=== PATIENT | male | born 1945 | race Caucasian/White ===

== ENCOUNTER 2020-07-15 18:12 | Inpatient (IN) | payer MEDICARE ==
[2020-07-16] MEDS ORDERED: Albuterol 200 PUFF (6.7GM INHALER) INH PRN (05:27)
[2020-07-16] MEDS ORDERED: Ondansetron ODT 4 MG TAB PO PRN (05:31)
[2020-07-16] MEDS ORDERED: LOPERAMIDE HCL 1 MG/7.5 ML PO PRN (05:32)
[2020-07-16] MEDS: Loratadine 10 MG TAB PO SCH (09:06)
[2020-07-16] MEDS: Dexamethasone 4 MG TAB PO SCH (09:06)
[2020-07-16] MEDS: Torsemide 20 MG TAB PO SCH (09:06)
[2020-07-16] MEDS: Aspirin 81 mg Enteric Coated Tablet PO SCH (09:07)
[2020-07-16] MEDS: Zinc Sulfate 220 MG CAP PO SCH (09:07)
[2020-07-16] MEDS: Amlodipine 5 MG TAB PO SCH (09:08)
[2020-07-16] MEDS: glipiZIDE 5 MG TAB PO SCH (09:08)
[2020-07-16] MEDS: Spironolactone 25 MG TAB PO SCH (09:09)
[2020-07-16] MEDS: Metoclopramide HCl 10 MG TAB PO SCH (09:09)
[2020-07-16] MEDS: Apixaban 5 MG TAB PO SCH ×2 (09:10→21:01)
[2020-07-16] MEDS: Benzonatate 100 MG CAP PO SCH ×3 (09:10→21:02)
[2020-07-16] MEDS: metFORMIN 500 MG TAB PO SCH ×2 (09:10→17:13)
[2020-07-16] MEDS: Albuterol 200 PUFF (6.7GM INHALER) INH SCH ×4 (09:11→21:04)
[2020-07-16] MEDS: Mometasone/Formoterol 60 PUFF AER INH SCH ×2 (09:53→20:59)
[2020-07-16] MEDS ORDERED: Dextrose 5% in Water 1,000 ML IV PRN (13:15)
[2020-07-16] MEDS ORDERED: HumaLOG 300 UNITS/3 ML VIAL SC PRN (13:15)
[2020-07-16] MEDS ORDERED: Dextrose 50% Abboject 50 ML SYRINGE IVP PRN (13:15)
[2020-07-16] MEDS: HumaLOG 300 UNITS/3 ML VIAL SC PRN ×2 (13:33→17:14)
[2020-07-16] MEDS: traZODone HCl 50 MG TAB PO SCH (21:02)
[2020-07-16] MEDS: Atorvastatin Calcium 20 MG TAB PO SCH (21:02)
[2020-07-17] MEDS: Albuterol 200 PUFF (6.7GM INHALER) INH SCH ×6 (02:00→20:40)
[2020-07-17 05:34] LABS: Band 10 % (5-11); Eosinophils 4 % (0-10); Hemoglobin 13.6 g/dL (14.0-18.0); Lymphocytes 6 % (21-51); MDiff Complete? YES; Mean Corpuscular HGB CONC 31.9 g/dL (32.0-36.0); Mean Corpuscular Hemoglobin 27.9 pg (27.0-31.0); Mean Corpuscular Volume 87.5 fL (78.0-98.0); Mean Platelet Volume 9.5 fL (7.4-10.4); Monocytes 3 % (0-10); Neutrophil 77 % (42-75); Ovalocytes SLIGHT = 2-5 cells (100X) (0-1/hpf); Platelet Count 256 thou/uL (130-400); Platelet Morphology Comment Appears Adequate; RBC Distribution Width 17.4 % (11.5-14.5); Red Blood Cell (RBC) Count 4.86 mill/uL (4.70-6.10); White Blood Cell (WBC) Count 26.4 thou/uL (4.8-10.8)
[2020-07-17 05:38] LABS: Anion Gap 14 mmol/L (10-20); BUN (Urea Nitrogen) 23 mg/dL (8.4-25.7); Calc. Creatinine Clearance 87 mL/min (70-130); Calcium 8.7 mg/dL (7.8-10.44); Carbon Dioxide 25 mmol/L (23-31); Chloride 93 mmol/L (98-107); Glucose 207 mg/dL (83-110); Sodium 128 mmol/L (136-145)
[2020-07-17 05:39] LABS: ALT (SGPT) 11 U/L (8-55); AST (SGOT) 10 U/L (5-34); Albumin 3.3 g/dL (3.4-4.8); Alkaline Phosphatase 85 U/L (40-110); Globulin 2.3 g/dL (2.4-3.5); Protein, Total 5.6 g/dL (5.8-8.1)
[2020-07-17] MEDS: HumaLOG 300 UNITS/3 ML VIAL SC PRN ×3 (06:47→17:51)
[2020-07-17] MEDS: glipiZIDE 5 MG TAB PO SCH (08:40)
[2020-07-17] MEDS: metFORMIN 500 MG TAB PO SCH ×2 (08:40→17:51)
[2020-07-17] MEDS: Torsemide 20 MG TAB PO SCH (08:41)
[2020-07-17] MEDS: Zinc Sulfate 220 MG CAP PO SCH (08:41)
[2020-07-17] MEDS: Metoclopramide HCl 10 MG TAB PO SCH (08:42)
[2020-07-17] MEDS: Apixaban 5 MG TAB PO SCH ×2 (08:42→20:41)
[2020-07-17] MEDS: Dexamethasone 4 MG TAB PO SCH (08:42)
[2020-07-17] MEDS: Spironolactone 25 MG TAB PO SCH (08:42)
[2020-07-17] MEDS: Benzonatate 100 MG CAP PO SCH ×3 (08:42→20:41)
[2020-07-17] MEDS: Aspirin 81 mg Enteric Coated Tablet PO SCH (08:42)
[2020-07-17] MEDS: Amlodipine 5 MG TAB PO SCH (08:43)
[2020-07-17] MEDS: Mometasone/Formoterol 60 PUFF AER INH SCH ×2 (08:44→20:41)
[2020-07-17] MEDS: Loratadine 10 MG TAB PO SCH (08:44)
[2020-07-17] MEDS ORDERED: Dextrose 50% Abboject 50 ML SYRINGE SLOW IVP PRN (18:31)
[2020-07-17] MEDS: Atorvastatin Calcium 20 MG TAB PO SCH (20:41)
[2020-07-17] MEDS: traZODone HCl 50 MG TAB PO SCH (20:41)
[2020-07-17] MEDS: Insulin Regular 300 UNITS/3 ML VIAL SC PRN (20:48)
[2020-07-18] MEDS: Albuterol 200 PUFF (6.7GM INHALER) INH SCH ×6 (02:00→20:54)
[2020-07-18] MEDS ORDERED: Albuterol Sulfate 2.5 mg/0.5 ml Neb ONE (05:10)
[2020-07-18] MEDS: Insulin Regular 300 UNITS/3 ML VIAL SC PRN ×4 (05:19→21:03)
[2020-07-18 05:30] LABS: #Basophils 0.1 thou/uL (0.0-0.2); #Eosinphils 0.1 thou/uL (0.0-0.7); #Lymphocytes 1.2 thou/uL (1.20-3.40); #Monocytes 1.8 thou/uL (0.11-0.59); #Neutrophils 24.2 thou/uL (1.40-6.50); %Basophils 0.4 % (0.0-1.0); %Eosinophils 0.2 % (0.0-10.0); %Lymphocytes 4.3 % (21.0-51.0); %Monocytes 6.6 % (0.0-10.0); %Neutrophils 88.6 % (42.0-75.0); Hemoglobin 13.6 g/dL (14.0-18.0); Mean Corpuscular HGB CONC 31.9 g/dL (32.0-36.0); Mean Corpuscular Hemoglobin 28.1 pg (27.0-31.0); Mean Platelet Volume 8.8 fL (7.4-10.4); Platelet Count 277 thou/uL (130-400); RBC Distribution Width 17.5 % (11.5-14.5); Red Blood Cell (RBC) Count 4.85 mill/uL (4.70-6.10); White Blood Cell (WBC) Count 27.4 thou/uL (4.8-10.8)
[2020-07-18 05:41] LABS: Anion Gap 17 mmol/L (10-20); BUN (Urea Nitrogen) 28 mg/dL (8.4-25.7); Calc. Creatinine Clearance 83 mL/min (70-130); Calcium 8.8 mg/dL (7.8-10.44); Carbon Dioxide 19 mmol/L (23-31); Chloride 95 mmol/L (98-107); Glucose 243 mg/dL (83-110); Potassium 4.5 mmol/L (3.5-5.1); Sodium 126 mmol/L (136-145)
[2020-07-18] MEDS: Apixaban 5 MG TAB PO SCH ×2 (08:07→20:53)
[2020-07-18] MEDS: Mometasone/Formoterol 60 PUFF AER INH SCH ×2 (08:07→20:54)
[2020-07-18] MEDS: Aspirin 81 mg Enteric Coated Tablet PO SCH (08:08)
[2020-07-18] MEDS: Torsemide 20 MG TAB PO SCH (08:08)
[2020-07-18] MEDS: Spironolactone 25 MG TAB PO SCH (08:09)
[2020-07-18] MEDS: glipiZIDE 5 MG TAB PO SCH (08:09)
[2020-07-18] MEDS: Amlodipine 5 MG TAB PO SCH (08:09)
[2020-07-18] MEDS: Metoclopramide HCl 10 MG TAB PO SCH (08:09)
[2020-07-18] MEDS: Loratadine 10 MG TAB PO SCH (08:09)
[2020-07-18] MEDS: Benzonatate 100 MG CAP PO SCH ×3 (08:09→20:53)
[2020-07-18] MEDS: metFORMIN 500 MG TAB PO SCH ×2 (08:09→16:51)
[2020-07-18] MEDS: Zinc Sulfate 220 MG CAP PO SCH (08:09)
[2020-07-18] MEDS: Dexamethasone 4 MG TAB PO SCH (08:10)
[2020-07-18] MEDS: traZODone HCl 50 MG TAB PO SCH (20:53)
[2020-07-18] MEDS: Atorvastatin Calcium 20 MG TAB PO SCH (20:53)
[2020-07-19] MEDS: Albuterol 200 PUFF (6.7GM INHALER) INH SCH ×6 (01:05→21:12)
[2020-07-19] MEDS: Insulin Regular 300 UNITS/3 ML VIAL SC PRN ×4 (05:15→21:18)
[2020-07-19] MEDS: glipiZIDE 5 MG TAB PO SCH (08:17)
[2020-07-19] MEDS: metFORMIN 500 MG TAB PO SCH ×2 (08:17→17:26)
[2020-07-19] MEDS: Spironolactone 25 MG TAB PO SCH (08:18)
[2020-07-19] MEDS: Apixaban 5 MG TAB PO SCH ×2 (08:19→21:10)
[2020-07-19] MEDS: Amlodipine 5 MG TAB PO SCH (08:19)
[2020-07-19] MEDS: Metoclopramide HCl 10 MG TAB PO SCH (08:20)
[2020-07-19] MEDS: Loratadine 10 MG TAB PO SCH (08:20)
[2020-07-19] MEDS: Benzonatate 100 MG CAP PO SCH ×3 (08:20→21:10)
[2020-07-19] MEDS: Dexamethasone 4 MG TAB PO SCH (08:20)
[2020-07-19] MEDS: Aspirin 81 mg Enteric Coated Tablet PO SCH (08:20)
[2020-07-19] MEDS: Mometasone/Formoterol 60 PUFF AER INH SCH ×2 (08:21→21:10)
[2020-07-19] MEDS: Zinc Sulfate 220 MG CAP PO SCH (08:23)
[2020-07-19] MEDS: Torsemide 20 MG TAB PO SCH (08:23)
[2020-07-19] MEDS: Atorvastatin Calcium 20 MG TAB PO SCH (21:10)
[2020-07-19] MEDS: traZODone HCl 50 MG TAB PO SCH (21:10)
[2020-07-20] MEDS: Albuterol 200 PUFF (6.7GM INHALER) INH SCH ×6 (00:33→20:45)
[2020-07-20] MEDS: Insulin Regular 300 UNITS/3 ML VIAL SC PRN ×4 (05:21→20:41)
[2020-07-20] MEDS: metFORMIN 500 MG TAB PO SCH ×2 (08:54→17:23)
[2020-07-20] MEDS: Spironolactone 25 MG TAB PO SCH (08:55)
[2020-07-20] MEDS: Amlodipine 5 MG TAB PO SCH (08:56)
[2020-07-20] MEDS: Benzonatate 100 MG CAP PO SCH ×3 (08:57→20:42)
[2020-07-20] MEDS: Dexamethasone 4 MG TAB PO SCH (08:57)
[2020-07-20] MEDS: Apixaban 5 MG TAB PO SCH ×2 (08:57→20:43)
[2020-07-20] MEDS: Aspirin 81 mg Enteric Coated Tablet PO SCH (08:57)
[2020-07-20] MEDS: Loratadine 10 MG TAB PO SCH (08:58)
[2020-07-20] MEDS: Metoclopramide HCl 10 MG TAB PO SCH (08:58)
[2020-07-20] MEDS: Mometasone/Formoterol 60 PUFF AER INH SCH ×2 (08:59→20:43)
[2020-07-20] MEDS: Torsemide 20 MG TAB PO SCH (09:00)
[2020-07-20] MEDS ORDERED: Lantus 1000 UNITS/10 ML VIAL SC SCH ×2 (09:00→13:15)
[2020-07-20] MEDS: Zinc Sulfate 220 MG CAP PO SCH (09:02)
[2020-07-20] MEDS: traZODone HCl 50 MG TAB PO SCH (20:42)
[2020-07-20] MEDS: Atorvastatin Calcium 20 MG TAB PO SCH (20:42)
[2020-07-21] MEDS: Albuterol 200 PUFF (6.7GM INHALER) INH SCH ×6 (01:14→20:26)
[2020-07-21 05:43] LABS: Hemoglobin 13.4 g/dL (14.0-18.0); Mean Corpuscular HGB CONC 31.2 g/dL (32.0-36.0); Mean Corpuscular Hemoglobin 27.1 pg (27.0-31.0); Mean Corpuscular Volume 86.8 fL (78.0-98.0); Mean Platelet Volume 8.8 fL (7.4-10.4); Platelet Count 335 thou/uL (130-400); RBC Distribution Width 17.4 % (11.5-14.5); Red Blood Cell (RBC) Count 4.95 mill/uL (4.70-6.10); White Blood Cell (WBC) Count 42.2 thou/uL (4.8-10.8)
[2020-07-21 05:44] LABS: Anion Gap 17 mmol/L (10-20); BUN (Urea Nitrogen) 25 mg/dL (8.4-25.7); Calc. Creatinine Clearance 84 mL/min (70-130); Calcium 9.1 mg/dL (7.8-10.44); Carbon Dioxide 24 mmol/L (23-31); Chloride 89 mmol/L (98-107); Glucose 155 mg/dL (83-110); Potassium 4.4 mmol/L (3.5-5.1); Sodium 126 mmol/L (136-145)
[2020-07-21 05:49] LABS: #Basophils 0.3 thou/uL (0.0-0.2); #Lymphocytes 1.6 thou/uL (1.20-3.40); #Monocytes 2.1 thou/uL (0.11-0.59); #Neutrophils 38.3 thou/uL (1.40-6.50); %Basophils 0.6 % (0.0-1.0); %Eosinophils 0.1 % (0.0-10.0); %Lymphocytes 3.8 % (21.0-51.0); %Monocytes 4.9 % (0.0-10.0); %Neutrophils 90.6 % (42.0-75.0); Anisocytosis SLIGHT = 6-15 cells (100X) (0-5/hpf); Band 7 % (5-11); Lymphocytes 8 % (21-51); MDiff Complete? YES; Monocytes 3 % (0-10); Neutrophil 82 % (42-75); Platelet Morphology Comment Appears Adequate; Poikilocytosis SLIGHT = 6-15 cells (100X) (0-5/hpf)
[2020-07-21] MEDS: Insulin Regular 300 UNITS/3 ML VIAL SC PRN ×4 (05:59→20:25)
[2020-07-21 06:09] LABS: White Blood Cell (WBC) Count 43.1 thou/uL (4.8-10.8)
[2020-07-21 06:39] LABS: Lactic Acid 1.5 mmol/L (0.5-2.2)
[2020-07-21 07:01] LABS: Bacteria/HPF None Seen HPF (None Seen); Bilirubin Negative (Negative); Blood, Urine Negative (Negative); Clarity Slightly Cloudy (Clear); Glucose, Urine (Dipstick) Negative (Negative); Ketone, Urine Negative (Negative); Leukocyte Large (Negative); Nitrite Negative (Negative); Protein, Urine (Dipstick) Negative (Neg-Trace); RBC/HPF 0-3 HPF (0-3); Specific Gravity, Urine 1.015 (1.005-1.030); Squamous Epithelial 0-3 HPF (0-3); Urobilinogen 0.2 mg/dL (Less than 2); Yeast-Budding 3+ HPF (None Seen); pH, Urine 5.5 (5.0-9.0)
[2020-07-21] MEDS: Torsemide 20 MG TAB PO SCH (08:28)
[2020-07-21] MEDS: Zinc Sulfate 220 MG CAP PO SCH (08:28)
[2020-07-21] MEDS: Aspirin 81 mg Enteric Coated Tablet PO SCH (08:28)
[2020-07-21] MEDS: Dexamethasone 4 MG TAB PO SCH (08:28)
[2020-07-21] MEDS: metFORMIN 500 MG TAB PO SCH ×2 (08:29→17:39)
[2020-07-21] MEDS: Spironolactone 25 MG TAB PO SCH (08:29)
[2020-07-21] MEDS: Benzonatate 100 MG CAP PO SCH ×3 (08:29→20:26)
[2020-07-21] MEDS: Metoclopramide HCl 10 MG TAB PO SCH (08:29)
[2020-07-21] MEDS: Amlodipine 5 MG TAB PO SCH (08:30)
[2020-07-21] MEDS: Loratadine 10 MG TAB PO SCH (08:30)
[2020-07-21] MEDS: Apixaban 5 MG TAB PO SCH ×2 (08:30→20:26)
[2020-07-21] MEDS: Mometasone/Formoterol 60 PUFF AER INH SCH ×2 (08:33→20:27)
[2020-07-21] MEDS: Lantus 1000 UNITS/10 ML VIAL SC SCH (08:35)
[2020-07-21] MEDS ORDERED: Fluconazole 100 MG TAB PO SCH (10:30)
[2020-07-21] MEDS: traZODone HCl 50 MG TAB PO SCH (20:26)
[2020-07-21] MEDS: Atorvastatin Calcium 20 MG TAB PO SCH (20:26)
[2020-07-22] MEDS: Albuterol 200 PUFF (6.7GM INHALER) INH SCH ×6 (00:23→20:42)
[2020-07-22 05:56] LABS: Anion Gap 17 mmol/L (10-20); BUN (Urea Nitrogen) 32 mg/dL (8.4-25.7); Calc. Creatinine Clearance 80 mL/min (70-130); Calcium 8.9 mg/dL (7.8-10.44); Carbon Dioxide 22 mmol/L (23-31); Chloride 91 mmol/L (98-107); Glucose 142 mg/dL (83-110); Potassium 4.4 mmol/L (3.5-5.1); Sodium 126 mmol/L (136-145)
[2020-07-22 06:14] LABS: #Basophils 0.1 thou/uL (0.0-0.2); #Eosinphils 0.1 thou/uL (0.0-0.7); #Neutrophils 38.1 thou/uL (1.40-6.50); %Basophils 0.3 % (0.0-1.0); %Eosinophils 0.1 % (0.0-10.0); %Lymphocytes 4.7 % (21.0-51.0); %Monocytes 4.8 % (0.0-10.0); %Neutrophils 90.1 % (42.0-75.0); Hemoglobin 13.2 g/dL (14.0-18.0); Mean Corpuscular HGB CONC 31.4 g/dL (32.0-36.0); Mean Corpuscular Hemoglobin 27.5 pg (27.0-31.0); Mean Corpuscular Volume 87.4 fL (78.0-98.0); Mean Platelet Volume 8.4 fL (7.4-10.4); Platelet Count 334 thou/uL (130-400); RBC Distribution Width 17.3 % (11.5-14.5); White Blood Cell (WBC) Count 42.3 thou/uL (4.8-10.8)
[2020-07-22] MEDS: Spironolactone 25 MG TAB PO SCH (09:24)
[2020-07-22] MEDS: metFORMIN 500 MG TAB PO SCH ×2 (09:24→17:00)
[2020-07-22] MEDS: Loratadine 10 MG TAB PO SCH (09:25)
[2020-07-22] MEDS: Amlodipine 5 MG TAB PO SCH (09:25)
[2020-07-22] MEDS: Torsemide 20 MG TAB PO SCH (09:25)
[2020-07-22] MEDS: Benzonatate 100 MG CAP PO SCH ×3 (09:26→20:43)
[2020-07-22] MEDS: Metoclopramide HCl 10 MG TAB PO SCH (09:26)
[2020-07-22] MEDS: Apixaban 5 MG TAB PO SCH ×2 (09:26→20:43)
[2020-07-22] MEDS: Dexamethasone 1 MG TAB PO SCH (09:26)
[2020-07-22] MEDS: Zinc Sulfate 220 MG CAP PO SCH (09:26)
[2020-07-22] MEDS: Aspirin 81 mg Enteric Coated Tablet PO SCH (09:27)
[2020-07-22] MEDS: Mometasone/Formoterol 60 PUFF AER INH SCH ×2 (09:28→20:43)
[2020-07-22] MEDS: Lantus 1000 UNITS/10 ML VIAL SC SCH (09:28)
[2020-07-22] MEDS: Insulin Regular 300 UNITS/3 ML VIAL SC PRN ×3 (12:18→21:32)
[2020-07-22] MEDS: Sodium Chloride 1 GM TAB PO SCH (20:43)
[2020-07-22] MEDS: traZODone HCl 50 MG TAB PO SCH (20:43)
[2020-07-22] MEDS: Atorvastatin Calcium 20 MG TAB PO SCH (20:43)
[2020-07-23] MEDS: Albuterol 200 PUFF (6.7GM INHALER) INH SCH ×6 (00:58→20:27)
[2020-07-23 05:25] LABS: Hemoglobin 12.7 g/dL (14.0-18.0); Mean Corpuscular HGB CONC 28.3 g/dL (32.0-36.0); Mean Corpuscular Hemoglobin 24.4 pg (27.0-31.0); Mean Corpuscular Volume 86.5 fL (78.0-98.0); Platelet Count 378 thou/uL (130-400); RBC Distribution Width 17.2 % (11.5-14.5); Red Blood Cell (RBC) Count 5.18 mill/uL (4.70-6.10); White Blood Cell (WBC) Count 44.8 thou/uL (4.8-10.8)
[2020-07-23 05:37] LABS: Anisocytosis SLIGHT = 6-15 cells (100X) (0-5/hpf); Band 1 % (5-11); Eosinophils 2 % (0-10); Lymphocytes 9 % (21-51); MDiff Complete? YES; Monocytes 3 % (0-10); Neutrophil 85 % (42-75); Platelet Morphology Comment Appears Adequate; Poikilocytosis SLIGHT = 6-15 cells (100X) (0-5/hpf)
[2020-07-23] MEDS: Lantus 1000 UNITS/10 ML VIAL SC SCH (08:46)
[2020-07-23] MEDS: Aspirin 81 mg Enteric Coated Tablet PO SCH (08:51)
[2020-07-23] MEDS: Spironolactone 25 MG TAB PO SCH (08:51)
[2020-07-23] MEDS: Benzonatate 100 MG CAP PO SCH ×3 (08:51→20:27)
[2020-07-23] MEDS: Zinc Sulfate 220 MG CAP PO SCH (08:52)
[2020-07-23] MEDS: Torsemide 20 MG TAB PO SCH (08:52)
[2020-07-23] MEDS: Dexamethasone 1 MG TAB PO SCH (08:52)
[2020-07-23] MEDS: Sodium Chloride 1 GM TAB PO SCH ×2 (08:52→20:27)
[2020-07-23] MEDS: Loratadine 10 MG TAB PO SCH (08:52)
[2020-07-23] MEDS: Apixaban 5 MG TAB PO SCH ×2 (08:52→20:27)
[2020-07-23] MEDS: metFORMIN 500 MG TAB PO SCH ×2 (08:53→17:18)
[2020-07-23] MEDS: Amlodipine 5 MG TAB PO SCH (08:53)
[2020-07-23] MEDS: Mometasone/Formoterol 60 PUFF AER INH SCH ×2 (08:54→20:28)
[2020-07-23] MEDS: Metoclopramide HCl 10 MG TAB PO SCH (08:54)
[2020-07-23] MEDS: Insulin Regular 300 UNITS/3 ML VIAL SC PRN ×3 (12:30→20:33)
[2020-07-23] MEDS: Polyethylene Glycol 3350 17 GM Packet PO PRN (14:14)
[2020-07-23] MEDS: traZODone HCl 50 MG TAB PO SCH (20:27)
[2020-07-23] MEDS: Atorvastatin Calcium 20 MG TAB PO SCH (20:27)
[2020-07-24] MEDS: Albuterol 200 PUFF (6.7GM INHALER) INH SCH ×6 (01:05→20:58)
[2020-07-24 05:40] LABS: #Basophils 0.2 thou/uL (0.0-0.2); #Eosinphils 0.1 thou/uL (0.0-0.7); #Lymphocytes 2.5 thou/uL (1.20-3.40); #Monocytes 2.1 thou/uL (0.11-0.59); #Neutrophils 35.1 thou/uL (1.40-6.50); %Basophils 0.4 % (0.0-1.0); %Eosinophils 0.4 % (0.0-10.0); %Lymphocytes 6.3 % (21.0-51.0); %Monocytes 5.2 % (0.0-10.0); %Neutrophils 87.8 % (42.0-75.0); Hemoglobin 12.2 g/dL (14.0-18.0); Mean Corpuscular Hemoglobin 26.1 pg (27.0-31.0); Mean Corpuscular Volume 87.1 fL (78.0-98.0); Mean Platelet Volume 7.1 fL (7.4-10.4); Platelet Count 300 thou/uL (130-400); RBC Distribution Width 17.5 % (11.5-14.5); Red Blood Cell (RBC) Count 4.69 mill/uL (4.70-6.10)
[2020-07-24 05:58] LABS: Anion Gap 17 mmol/L (10-20); BUN (Urea Nitrogen) 37 mg/dL (8.4-25.7); Calc. Creatinine Clearance 77 mL/min (70-130); Calcium 8.9 mg/dL (7.8-10.44); Carbon Dioxide 24 mmol/L (23-31); Chloride 91 mmol/L (98-107); Glucose 126 mg/dL (83-110); Potassium 4.5 mmol/L (3.5-5.1); Sodium 127 mmol/L (136-145)
[2020-07-24] MEDS: Sodium Chloride 1 GM TAB PO SCH ×2 (08:44→21:00)
[2020-07-24] MEDS: metFORMIN 500 MG TAB PO SCH ×2 (08:44→16:10)
[2020-07-24] MEDS: Mometasone/Formoterol 60 PUFF AER INH SCH ×2 (08:44→20:59)
[2020-07-24] MEDS: Zinc Sulfate 220 MG CAP PO SCH (08:44)
[2020-07-24] MEDS: Dexamethasone 1 MG TAB PO SCH (08:45)
[2020-07-24] MEDS: Torsemide 20 MG TAB PO SCH (08:45)
[2020-07-24] MEDS: Apixaban 5 MG TAB PO SCH ×2 (08:45→20:59)
[2020-07-24] MEDS: Aspirin 81 mg Enteric Coated Tablet PO SCH (08:45)
[2020-07-24] MEDS: Spironolactone 25 MG TAB PO SCH (08:46)
[2020-07-24] MEDS: Benzonatate 100 MG CAP PO SCH ×3 (08:46→20:59)
[2020-07-24] MEDS: Loratadine 10 MG TAB PO SCH (08:47)
[2020-07-24] MEDS: Amlodipine 5 MG TAB PO SCH (08:47)
[2020-07-24] MEDS: Metoclopramide HCl 10 MG TAB PO SCH (08:47)
[2020-07-24] MEDS: Lantus 1000 UNITS/10 ML VIAL SC SCH (08:48)
[2020-07-24] MEDS: Insulin Regular 300 UNITS/3 ML VIAL SC PRN ×2 (13:08→18:52)
[2020-07-24] MEDS: Atorvastatin Calcium 20 MG TAB PO SCH (20:59)
[2020-07-24] MEDS: traZODone HCl 50 MG TAB PO SCH (21:00)
[2020-07-25] MEDS: Albuterol 200 PUFF (6.7GM INHALER) INH SCH ×6 (02:37→20:40)
[2020-07-25 05:32] LABS: #Basophils 0.2 thou/uL (0.0-0.2); #Eosinphils 0.1 thou/uL (0.0-0.7); #Lymphocytes 2.3 thou/uL (1.20-3.40); #Monocytes 1.7 thou/uL (0.11-0.59); #Neutrophils 32.6 thou/uL (1.40-6.50); %Basophils 0.4 % (0.0-1.0); %Eosinophils 0.3 % (0.0-10.0); %Lymphocytes 6.2 % (21.0-51.0); %Monocytes 4.7 % (0.0-10.0); %Neutrophils 88.4 % (42.0-75.0); Hemoglobin 11.8 g/dL (14.0-18.0); Mean Corpuscular HGB CONC 30.4 g/dL (32.0-36.0); Mean Corpuscular Hemoglobin 26.4 pg (27.0-31.0); Mean Platelet Volume 7.3 fL (7.4-10.4); Platelet Count 255 thou/uL (130-400); RBC Distribution Width 17.3 % (11.5-14.5); Red Blood Cell (RBC) Count 4.48 mill/uL (4.70-6.10); White Blood Cell (WBC) Count 36.8 thou/uL (4.8-10.8)
[2020-07-25 05:40] LABS: Anion Gap 15 mmol/L (10-20); BUN (Urea Nitrogen) 38 mg/dL (8.4-25.7); Calc. Creatinine Clearance 85 mL/min (70-130); Calcium 8.6 mg/dL (7.8-10.44); Carbon Dioxide 23 mmol/L (23-31); Chloride 91 mmol/L (98-107); Glucose 116 mg/dL (83-110); Potassium 4.5 mmol/L (3.5-5.1); Sodium 124 mmol/L (136-145)
[2020-07-25] MEDS: Mometasone/Formoterol 60 PUFF AER INH SCH ×2 (08:34→20:40)
[2020-07-25] MEDS: Benzonatate 100 MG CAP PO SCH ×3 (08:35→20:41)
[2020-07-25] MEDS: Zinc Sulfate 220 MG CAP PO SCH (08:35)
[2020-07-25] MEDS: Aspirin 81 mg Enteric Coated Tablet PO SCH (08:36)
[2020-07-25] MEDS: Dexamethasone 1 MG TAB PO SCH ×2 (08:36→15:55)
[2020-07-25] MEDS: metFORMIN 500 MG TAB PO SCH ×2 (08:36→15:55)
[2020-07-25] MEDS: Sodium Chloride 1 GM TAB PO SCH ×2 (08:36→20:41)
[2020-07-25] MEDS: Apixaban 5 MG TAB PO SCH ×2 (08:36→20:41)
[2020-07-25] MEDS: Amlodipine 5 MG TAB PO SCH (08:37)
[2020-07-25] MEDS: Loratadine 10 MG TAB PO SCH (08:37)
[2020-07-25] MEDS: Metoclopramide HCl 10 MG TAB PO SCH (08:38)
[2020-07-25] MEDS: Spironolactone 25 MG TAB PO SCH (08:38)
[2020-07-25] MEDS: Torsemide 20 MG TAB PO SCH (08:39)
[2020-07-25] MEDS: Lantus 1000 UNITS/10 ML VIAL SC SCH (08:41)
[2020-07-25] MEDS: Polyethylene Glycol 3350 17 GM Packet PO PRN (09:09)
[2020-07-25] MEDS: Insulin Regular 300 UNITS/3 ML VIAL SC PRN ×3 (12:22→20:39)
[2020-07-25 16:42] LABS: Anion Gap 21 mmol/L (10-20); BUN (Urea Nitrogen) 35 mg/dL (8.4-25.7); Calc. Creatinine Clearance 60 mL/min (70-130); Carbon Dioxide 23 mmol/L (23-31); Chloride 88 mmol/L (98-107); Glucose 267 mg/dL (83-110); Potassium 4.8 mmol/L (3.5-5.1); Sodium 127 mmol/L (136-145)
[2020-07-25] MEDS: Atorvastatin Calcium 20 MG TAB PO SCH (20:41)
[2020-07-25] MEDS: traZODone HCl 50 MG TAB PO SCH (20:41)
[2020-07-26] MEDS: Albuterol 200 PUFF (6.7GM INHALER) INH SCH ×6 (01:08→21:11)
[2020-07-26 05:23] LABS: Hemoglobin 12.4 g/dL (14.0-18.0); Mean Corpuscular Volume 87.5 fL (78.0-98.0); Red Blood Cell (RBC) Count 4.41 mill/uL (4.70-6.10); White Blood Cell (WBC) Count 35.5 thou/uL (4.8-10.8)
[2020-07-26 05:24] LABS: #Basophils 0.1 thou/uL (0.0-0.2); #Lymphocytes 1.6 thou/uL (1.20-3.40); #Monocytes 1.4 thou/uL (0.11-0.59); #Neutrophils 32.3 thou/uL (1.40-6.50); %Basophils 0.3 % (0.0-1.0); %Eosinophils 0.1 % (0.0-10.0); %Lymphocytes 4.6 % (21.0-51.0); %Monocytes 3.9 % (0.0-10.0); %Neutrophils 91.2 % (42.0-75.0); Manual Diff?? NO; Mean Corpuscular HGB CONC 32.1 g/dL (32.0-36.0); Mean Corpuscular Hemoglobin 28.1 pg (27.0-31.0); Mean Platelet Volume 9.6 fL (7.4-10.4); Platelet Count 230 thou/uL (130-400); RBC Distribution Width 17.3 % (11.5-14.5)
[2020-07-26 05:28] LABS: Anion Gap 16 mmol/L (10-20); BUN (Urea Nitrogen) 33 mg/dL (8.4-25.7); Calc. Creatinine Clearance 86 mL/min (70-130); Calcium 8.5 mg/dL (7.8-10.44); Carbon Dioxide 23 mmol/L (23-31); Chloride 92 mmol/L (98-107); Glucose 138 mg/dL (83-110); Potassium 4.6 mmol/L (3.5-5.1); Sodium 126 mmol/L (136-145)
[2020-07-26] MEDS: Mometasone/Formoterol 60 PUFF AER INH SCH ×2 (09:08→21:11)
[2020-07-26] MEDS: Zinc Sulfate 220 MG CAP PO SCH (09:09)
[2020-07-26] MEDS: Metoclopramide HCl 10 MG TAB PO SCH (09:09)
[2020-07-26] MEDS: Sodium Chloride 1 GM TAB PO SCH ×2 (09:09→21:12)
[2020-07-26] MEDS: Spironolactone 25 MG TAB PO SCH (09:10)
[2020-07-26] MEDS: Loratadine 10 MG TAB PO SCH (09:10)
[2020-07-26] MEDS: metFORMIN 500 MG TAB PO SCH ×2 (09:10→17:08)
[2020-07-26] MEDS: Benzonatate 100 MG CAP PO SCH ×3 (09:10→21:12)
[2020-07-26] MEDS: Apixaban 5 MG TAB PO SCH ×2 (09:10→21:12)
[2020-07-26] MEDS: Aspirin 81 mg Enteric Coated Tablet PO SCH (09:11)
[2020-07-26] MEDS: Amlodipine 5 MG TAB PO SCH (09:11)
[2020-07-26] MEDS: Dexamethasone 1 MG TAB PO SCH ×2 (09:11→17:09)
[2020-07-26] MEDS: Lantus 1000 UNITS/10 ML VIAL SC SCH (09:12)
[2020-07-26] MEDS: Insulin Regular 300 UNITS/3 ML VIAL SC PRN ×3 (12:11→21:11)
[2020-07-26] MEDS: Atorvastatin Calcium 20 MG TAB PO SCH (21:12)
[2020-07-26] MEDS: traZODone HCl 50 MG TAB PO SCH (21:12)
[2020-07-27] MEDS: Albuterol 200 PUFF (6.7GM INHALER) INH SCH ×6 (01:43→20:57)
[2020-07-27 05:14] LABS: #Basophils 0.1 thou/uL (0.0-0.2); #Eosinphils 0.1 thou/uL (0.0-0.7); #Lymphocytes 1.6 thou/uL (1.20-3.40); #Monocytes 1.6 thou/uL (0.11-0.59); #Neutrophils 27.8 thou/uL (1.40-6.50); %Basophils 0.2 % (0.0-1.0); %Eosinophils 0.2 % (0.0-10.0); %Lymphocytes 5.2 % (21.0-51.0); %Monocytes 5.2 % (0.0-10.0); %Neutrophils 89.1 % (42.0-75.0); Hemoglobin 11.1 g/dL (14.0-18.0); Mean Corpuscular Hemoglobin 27.4 pg (27.0-31.0); Mean Corpuscular Volume 88.7 fL (78.0-98.0); Mean Platelet Volume 7.9 fL (7.4-10.4); Platelet Count 190 thou/uL (130-400); RBC Distribution Width 17.4 % (11.5-14.5); Red Blood Cell (RBC) Count 4.04 mill/uL (4.70-6.10); White Blood Cell (WBC) Count 31.1 thou/uL (4.8-10.8)
[2020-07-27 05:20] LABS: Anion Gap 14 mmol/L (10-20); BUN (Urea Nitrogen) 24 mg/dL (8.4-25.7); Calc. Creatinine Clearance 90 mL/min (70-130); Calcium 8.3 mg/dL (7.8-10.44); Carbon Dioxide 21 mmol/L (23-31); Chloride 97 mmol/L (98-107); Glucose 193 mg/dL (83-110); Potassium 4.7 mmol/L (3.5-5.1); Sodium 127 mmol/L (136-145)
[2020-07-27] MEDS: Insulin Regular 300 UNITS/3 ML VIAL SC PRN ×2 (05:31→12:02)
[2020-07-27] MEDS: Amlodipine 5 MG TAB PO SCH (09:40)
[2020-07-27] MEDS: Aspirin 81 mg Enteric Coated Tablet PO SCH (09:40)
[2020-07-27] MEDS: Spironolactone 25 MG TAB PO SCH (09:41)
[2020-07-27] MEDS: Sodium Chloride 1 GM TAB PO SCH ×2 (09:44→20:59)
[2020-07-27] MEDS: Loratadine 10 MG TAB PO SCH (09:44)
[2020-07-27] MEDS: Zinc Sulfate 220 MG CAP PO SCH (09:45)
[2020-07-27] MEDS: metFORMIN 500 MG TAB PO SCH ×2 (09:45→17:09)
[2020-07-27] MEDS: Dexamethasone 1 MG TAB PO SCH ×2 (09:45→17:09)
[2020-07-27] MEDS: Apixaban 5 MG TAB PO SCH ×2 (09:45→20:58)
[2020-07-27] MEDS: Lantus 1000 UNITS/10 ML VIAL SC SCH (09:45)
[2020-07-27] MEDS: Benzonatate 100 MG CAP PO SCH ×3 (09:45→20:59)
[2020-07-27] MEDS: Metoclopramide HCl 10 MG TAB PO SCH (09:45)
[2020-07-27] MEDS: Mometasone/Formoterol 60 PUFF AER INH SCH ×2 (09:47→20:58)
[2020-07-27] MEDS: Atorvastatin Calcium 20 MG TAB PO SCH (20:58)
[2020-07-27] MEDS: traZODone HCl 50 MG TAB PO SCH (20:58)
[2020-07-28] MEDS: Albuterol 200 PUFF (6.7GM INHALER) INH SCH ×6 (01:57→20:03)
[2020-07-28 05:59] LABS: #Basophils 0.1 thou/uL (0.0-0.2); #Lymphocytes 1.6 thou/uL (1.20-3.40); #Monocytes 1.6 thou/uL (0.11-0.59); #Neutrophils 24.1 thou/uL (1.40-6.50); %Basophils 0.4 % (0.0-1.0); %Eosinophils 0.2 % (0.0-10.0); %Lymphocytes 5.9 % (21.0-51.0); %Monocytes 5.9 % (0.0-10.0); %Neutrophils 87.7 % (42.0-75.0); Hemoglobin 11.6 g/dL (14.0-18.0); Mean Corpuscular HGB CONC 31.8 g/dL (32.0-36.0); Mean Corpuscular Hemoglobin 27.9 pg (27.0-31.0); Mean Corpuscular Volume 87.9 fL (78.0-98.0); Mean Platelet Volume 9.3 fL (7.4-10.4); Platelet Count 172 thou/uL (130-400); RBC Distribution Width 17.9 % (11.5-14.5); Red Blood Cell (RBC) Count 4.15 mill/uL (4.70-6.10); White Blood Cell (WBC) Count 27.5 thou/uL (4.8-10.8)
[2020-07-28 06:07] LABS: Anion Gap 14 mmol/L (10-20); BUN (Urea Nitrogen) 20 mg/dL (8.4-25.7); Calc. Creatinine Clearance 90 mL/min (70-130); Calcium 8.5 mg/dL (7.8-10.44); Carbon Dioxide 21 mmol/L (23-31); Chloride 98 mmol/L (98-107); Glucose 114 mg/dL (83-110); Potassium 4.5 mmol/L (3.5-5.1); Sodium 128 mmol/L (136-145)
[2020-07-28] MEDS: metFORMIN 500 MG TAB PO SCH ×2 (08:22→15:56)
[2020-07-28] MEDS: Benzonatate 100 MG CAP PO SCH ×3 (08:22→20:05)
[2020-07-28] MEDS: Zinc Sulfate 220 MG CAP PO SCH (08:22)
[2020-07-28] MEDS: Sodium Chloride 1 GM TAB PO SCH ×2 (08:22→20:05)
[2020-07-28] MEDS: Loratadine 10 MG TAB PO SCH (08:23)
[2020-07-28] MEDS: Aspirin 81 mg Enteric Coated Tablet PO SCH (08:23)
[2020-07-28] MEDS: Apixaban 5 MG TAB PO SCH ×2 (08:23→20:04)
[2020-07-28] MEDS: Metoclopramide HCl 10 MG TAB PO SCH (08:23)
[2020-07-28] MEDS: Spironolactone 25 MG TAB PO SCH (08:23)
[2020-07-28] MEDS: Dexamethasone 1 MG TAB PO SCH (08:23)
[2020-07-28] MEDS: Amlodipine 5 MG TAB PO SCH (08:23)
[2020-07-28] MEDS: Mometasone/Formoterol 60 PUFF AER INH SCH ×2 (08:24→20:04)
[2020-07-28] MEDS: Lantus 1000 UNITS/10 ML VIAL SC SCH (08:35)
[2020-07-28] MEDS: Insulin Regular 300 UNITS/3 ML VIAL SC PRN ×2 (13:10→17:23)
[2020-07-28] MEDS: traZODone HCl 50 MG TAB PO SCH (20:05)
[2020-07-28] MEDS: Atorvastatin Calcium 20 MG TAB PO SCH (20:05)
[2020-07-29] MEDS: Albuterol 200 PUFF (6.7GM INHALER) INH SCH ×6 (00:29→20:09)
[2020-07-29 05:35] LABS: Anion Gap 14 mmol/L (10-20); BUN (Urea Nitrogen) 19 mg/dL (8.4-25.7); Calc. Creatinine Clearance 94 mL/min (70-130); Calcium 8.5 mg/dL (7.8-10.44); Carbon Dioxide 20 mmol/L (23-31); Chloride 99 mmol/L (98-107); Glucose 119 mg/dL (83-110); Potassium 4.3 mmol/L (3.5-5.1); Sodium 129 mmol/L (136-145)
[2020-07-29 05:54] LABS: #Basophils 0.1 thou/uL (0.0-0.2); #Eosinphils 0.1 thou/uL (0.0-0.7); #Lymphocytes 2.2 thou/uL (1.20-3.40); #Monocytes 1.3 thou/uL (0.11-0.59); #Neutrophils 18.9 thou/uL (1.40-6.50); %Basophils 0.4 % (0.0-1.0); %Eosinophils 0.5 % (0.0-10.0); %Lymphocytes 9.6 % (21.0-51.0); %Monocytes 5.6 % (0.0-10.0); Hemoglobin 11.8 g/dL (14.0-18.0); Mean Corpuscular Hemoglobin 28.2 pg (27.0-31.0); Mean Platelet Volume 8.8 fL (7.4-10.4); Platelet Count 155 thou/uL (130-400); RBC Distribution Width 17.8 % (11.5-14.5); White Blood Cell (WBC) Count 22.5 thou/uL (4.8-10.8)
[2020-07-29] MEDS: Amlodipine 5 MG TAB PO SCH (08:18)
[2020-07-29] MEDS: Zinc Sulfate 220 MG CAP PO SCH (08:18)
[2020-07-29] MEDS: Benzonatate 100 MG CAP PO SCH ×3 (08:18→20:08)
[2020-07-29] MEDS: Spironolactone 25 MG TAB PO SCH (08:19)
[2020-07-29] MEDS: Sodium Chloride 1 GM TAB PO SCH ×2 (08:19→20:08)
[2020-07-29] MEDS: Loratadine 10 MG TAB PO SCH (08:19)
[2020-07-29] MEDS: metFORMIN 500 MG TAB PO SCH ×2 (08:19→17:56)
[2020-07-29] MEDS: Aspirin 81 mg Enteric Coated Tablet PO SCH (08:19)
[2020-07-29] MEDS: Dexamethasone 1 MG TAB PO SCH (08:20)
[2020-07-29] MEDS: Metoclopramide HCl 10 MG TAB PO SCH (08:20)
[2020-07-29] MEDS: Apixaban 5 MG TAB PO SCH ×2 (08:20→20:09)
[2020-07-29] MEDS: Mometasone/Formoterol 60 PUFF AER INH SCH ×2 (08:20→20:05)
[2020-07-29] MEDS: Lantus 1000 UNITS/10 ML VIAL SC SCH (08:23)
[2020-07-29] MEDS: Insulin Regular 300 UNITS/3 ML VIAL SC PRN ×2 (12:09→20:05)
[2020-07-29] MEDS: traZODone HCl 50 MG TAB PO SCH (20:08)
[2020-07-29] MEDS: Atorvastatin Calcium 20 MG TAB PO SCH (20:08)
[2020-07-30] MEDS: Albuterol 200 PUFF (6.7GM INHALER) INH SCH ×6 (01:22→20:34)
[2020-07-30 05:38] LABS: #Basophils 0.1 thou/uL (0.0-0.2); #Eosinphils 0.1 thou/uL (0.0-0.7); #Lymphocytes 2.1 thou/uL (1.20-3.40); #Monocytes 1.5 thou/uL (0.11-0.59); %Basophils 0.5 % (0.0-1.0); %Eosinophils 0.5 % (0.0-10.0); %Lymphocytes 8.4 % (21.0-51.0); %Monocytes 6.1 % (0.0-10.0); %Neutrophils 84.4 % (42.0-75.0); Hemoglobin 11.7 g/dL (14.0-18.0); Mean Corpuscular HGB CONC 31.6 g/dL (32.0-36.0); Mean Corpuscular Hemoglobin 28.1 pg (27.0-31.0); Mean Corpuscular Volume 88.8 fL (78.0-98.0); Mean Platelet Volume 7.9 fL (7.4-10.4); Platelet Count 144 thou/uL (130-400); RBC Distribution Width 18.2 % (11.5-14.5); Red Blood Cell (RBC) Count 4.18 mill/uL (4.70-6.10); White Blood Cell (WBC) Count 24.9 thou/uL (4.8-10.8)
[2020-07-30 05:48] LABS: Anion Gap 14 mmol/L (10-20); BUN (Urea Nitrogen) 16 mg/dL (8.4-25.7); Calc. Creatinine Clearance 96 mL/min (70-130); Calcium 8.8 mg/dL (7.8-10.44); Carbon Dioxide 21 mmol/L (23-31); Chloride 100 mmol/L (98-107); Glucose 104 mg/dL (83-110); Sodium 130 mmol/L (136-145)
[2020-07-30] MEDS: Amlodipine 5 MG TAB PO SCH (09:05)
[2020-07-30] MEDS: Aspirin 81 mg Enteric Coated Tablet PO SCH (09:05)
[2020-07-30] MEDS: metFORMIN 500 MG TAB PO SCH ×2 (09:06→17:54)
[2020-07-30] MEDS: Zinc Sulfate 220 MG CAP PO SCH (09:06)
[2020-07-30] MEDS: Spironolactone 25 MG TAB PO SCH (09:06)
[2020-07-30] MEDS: Metoclopramide HCl 10 MG TAB PO SCH (09:07)
[2020-07-30] MEDS: Loratadine 10 MG TAB PO SCH (09:07)
[2020-07-30] MEDS: Sodium Chloride 1 GM TAB PO SCH ×2 (09:07→20:34)
[2020-07-30] MEDS: Benzonatate 100 MG CAP PO SCH ×3 (09:07→20:34)
[2020-07-30] MEDS: Apixaban 5 MG TAB PO SCH ×2 (09:07→20:34)
[2020-07-30] MEDS: Dexamethasone 1 MG TAB PO SCH (09:08)
[2020-07-30] MEDS: Mometasone/Formoterol 60 PUFF AER INH SCH ×2 (09:09→20:34)
[2020-07-30] MEDS: Lantus 1000 UNITS/10 ML VIAL SC SCH (09:09)
[2020-07-30] MEDS: Insulin Regular 300 UNITS/3 ML VIAL SC PRN ×3 (12:17→20:33)
[2020-07-30] MEDS: Atorvastatin Calcium 20 MG TAB PO SCH (20:34)
[2020-07-30] MEDS: traZODone HCl 50 MG TAB PO SCH (20:34)
[2020-07-31] MEDS: Albuterol 200 PUFF (6.7GM INHALER) INH SCH ×6 (00:57→20:41)
[2020-07-31 05:20] LABS: #Basophils 0.1 thou/uL (0.0-0.2); #Eosinphils 0.1 thou/uL (0.0-0.7); #Lymphocytes 2.1 thou/uL (1.20-3.40); #Monocytes 1.3 thou/uL (0.11-0.59); #Neutrophils 20.7 thou/uL (1.40-6.50); %Basophils 0.6 % (0.0-1.0); %Eosinophils 0.4 % (0.0-10.0); %Lymphocytes 8.5 % (21.0-51.0); %Monocytes 5.5 % (0.0-10.0); %Neutrophils 85.1 % (42.0-75.0); Hemoglobin 11.4 g/dL (14.0-18.0); Mean Corpuscular HGB CONC 31.6 g/dL (32.0-36.0); Mean Corpuscular Hemoglobin 28.3 pg (27.0-31.0); Mean Corpuscular Volume 89.6 fL (78.0-98.0); Mean Platelet Volume 9.7 fL (7.4-10.4); Platelet Count 151 thou/uL (130-400); RBC Distribution Width 18.4 % (11.5-14.5); Red Blood Cell (RBC) Count 4.03 mill/uL (4.70-6.10); White Blood Cell (WBC) Count 24.4 thou/uL (4.8-10.8)
[2020-07-31 05:34] LABS: Anion Gap 13 mmol/L (10-20); BUN (Urea Nitrogen) 16 mg/dL (8.4-25.7); Calc. Creatinine Clearance 97 mL/min (70-130); Calcium 8.7 mg/dL (7.8-10.44); Carbon Dioxide 21 mmol/L (23-31); Chloride 99 mmol/L (98-107); Glucose 105 mg/dL (83-110); Potassium 4.4 mmol/L (3.5-5.1); Sodium 129 mmol/L (136-145)
[2020-07-31] MEDS: Spironolactone 25 MG TAB PO SCH (09:30)
[2020-07-31] MEDS: metFORMIN 500 MG TAB PO SCH ×2 (09:30→16:53)
[2020-07-31] MEDS: Aspirin 81 mg Enteric Coated Tablet PO SCH (09:31)
[2020-07-31] MEDS: Dexamethasone 1 MG TAB PO SCH (09:31)
[2020-07-31] MEDS: Loratadine 10 MG TAB PO SCH (09:32)
[2020-07-31] MEDS: Amlodipine 5 MG TAB PO SCH (09:32)
[2020-07-31] MEDS: Benzonatate 100 MG CAP PO SCH ×3 (09:32→20:41)
[2020-07-31] MEDS: Apixaban 5 MG TAB PO SCH ×2 (09:33→20:41)
[2020-07-31] MEDS: Mometasone/Formoterol 60 PUFF AER INH SCH ×2 (09:33→20:40)
[2020-07-31] MEDS: Zinc Sulfate 220 MG CAP PO SCH (09:35)
[2020-07-31] MEDS: Metoclopramide HCl 10 MG TAB PO SCH (09:35)
[2020-07-31] MEDS: Sodium Chloride 1 GM TAB PO SCH ×2 (09:36→20:41)
[2020-07-31] MEDS: Lantus 1000 UNITS/10 ML VIAL SC SCH (09:37)
[2020-07-31] MEDS: Insulin Regular 300 UNITS/3 ML VIAL SC PRN ×3 (11:54→20:40)
[2020-07-31] MEDS: Atorvastatin Calcium 20 MG TAB PO SCH (20:41)
[2020-07-31] MEDS: traZODone HCl 50 MG TAB PO SCH (20:41)
[2020-08-01] MEDS: Albuterol 200 PUFF (6.7GM INHALER) INH SCH ×6 (01:30→20:34)
[2020-08-01 01:33] VITALS: BMI 22.1
[2020-08-01 05:42] LABS: #Basophils 0.2 thou/uL (0.0-0.2); #Eosinphils 0.1 thou/uL (0.0-0.7); #Monocytes 1.4 thou/uL (0.11-0.59); #Neutrophils 18.2 thou/uL (1.40-6.50); %Basophils 0.7 % (0.0-1.0); %Eosinophils 0.5 % (0.0-10.0); %Lymphocytes 9.1 % (21.0-51.0); %Monocytes 6.2 % (0.0-10.0); %Neutrophils 83.5 % (42.0-75.0); Anion Gap 14 mmol/L (10-20); BUN (Urea Nitrogen) 18 mg/dL (8.4-25.7); Calc. Creatinine Clearance 91 mL/min (70-130); Calcium 8.8 mg/dL (7.8-10.44); Carbon Dioxide 21 mmol/L (23-31); Chloride 98 mmol/L (98-107); Glucose 108 mg/dL (83-110); Hemoglobin 11.6 g/dL (14.0-18.0); Mean Corpuscular HGB CONC 31.6 g/dL (32.0-36.0); Mean Corpuscular Hemoglobin 28.1 pg (27.0-31.0); Mean Corpuscular Volume 88.9 fL (78.0-98.0); Mean Platelet Volume 9.3 fL (7.4-10.4); Platelet Count 142 thou/uL (130-400); Potassium 4.5 mmol/L (3.5-5.1); RBC Distribution Width 18.2 % (11.5-14.5); Red Blood Cell (RBC) Count 4.14 mill/uL (4.70-6.10); Sodium 128 mmol/L (136-145); White Blood Cell (WBC) Count 21.8 thou/uL (4.8-10.8)
[2020-08-01] MEDS: Metoclopramide HCl 10 MG TAB PO SCH (08:51)
[2020-08-01] MEDS: Zinc Sulfate 220 MG CAP PO SCH (08:51)
[2020-08-01] MEDS: Amlodipine 5 MG TAB PO SCH (08:51)
[2020-08-01] MEDS: Benzonatate 100 MG CAP PO SCH ×3 (08:51→20:35)
[2020-08-01] MEDS: Sodium Chloride 1 GM TAB PO SCH ×2 (08:51→20:35)
[2020-08-01] MEDS: Aspirin 81 mg Enteric Coated Tablet PO SCH (08:52)
[2020-08-01] MEDS: Apixaban 5 MG TAB PO SCH ×2 (08:52→20:35)
[2020-08-01] MEDS: Spironolactone 25 MG TAB PO SCH (08:52)
[2020-08-01] MEDS: Loratadine 10 MG TAB PO SCH (08:52)
[2020-08-01] MEDS: metFORMIN 500 MG TAB PO SCH ×2 (08:52→16:44)
[2020-08-01] MEDS: Lantus 1000 UNITS/10 ML VIAL SC SCH (08:53)
[2020-08-01] MEDS: Mometasone/Formoterol 60 PUFF AER INH SCH ×2 (08:53→20:34)
[2020-08-01] MEDS: Insulin Regular 300 UNITS/3 ML VIAL SC PRN ×2 (12:19→20:34)
[2020-08-01] MEDS: traZODone HCl 50 MG TAB PO SCH (20:35)
[2020-08-01] MEDS: Atorvastatin Calcium 20 MG TAB PO SCH (20:35)
[2020-08-02] MEDS: Albuterol 200 PUFF (6.7GM INHALER) INH SCH ×6 (01:53→21:38)
[2020-08-02 05:43] LABS: #Basophils 0.2 thou/uL (0.0-0.2); #Eosinphils 0.1 thou/uL (0.0-0.7); #Monocytes 1.1 thou/uL (0.11-0.59); #Neutrophils 15.2 thou/uL (1.40-6.50); %Basophils 0.9 % (0.0-1.0); %Eosinophils 0.7 % (0.0-10.0); %Lymphocytes 10.9 % (21.0-51.0); %Neutrophils 81.6 % (42.0-75.0); Anisocytosis SLIGHT = 6-15 cells (100X) (0-5/hpf); Hemoglobin 11.8 g/dL (14.0-18.0); MDiff Complete? YES; Mean Corpuscular HGB CONC 31.4 g/dL (32.0-36.0); Mean Corpuscular Volume 89.2 fL (78.0-98.0); Mean Platelet Volume 8.3 fL (7.4-10.4); Ovalocytes SLIGHT = 2-5 cells (100X) (0-1/hpf); Platelet Count 138 thou/uL (130-400); Platelet Morphology Comment Appears Adequate; Poikilocytosis SLIGHT = 6-15 cells (100X) (0-5/hpf); Polychromasia SLIGHT = 2-3 cells (100X) (0-2/hpf); RBC Distribution Width 18.6 % (11.5-14.5); White Blood Cell (WBC) Count 18.6 thou/uL (4.8-10.8)
[2020-08-02 05:47] LABS: Anion Gap 13 mmol/L (10-20); BUN (Urea Nitrogen) 19 mg/dL (8.4-25.7); Calc. Creatinine Clearance 87 mL/min (70-130); Calcium 8.6 mg/dL (7.8-10.44); Carbon Dioxide 21 mmol/L (23-31); Chloride 101 mmol/L (98-107); Glucose 102 mg/dL (83-110); Potassium 4.3 mmol/L (3.5-5.1); Sodium 131 mmol/L (136-145)
[2020-08-02] MEDS: Lantus 1000 UNITS/10 ML VIAL SC SCH (09:56)
[2020-08-02] MEDS: Mometasone/Formoterol 60 PUFF AER INH SCH ×2 (09:56→21:39)
[2020-08-02] MEDS: Spironolactone 25 MG TAB PO SCH (09:58)
[2020-08-02] MEDS: Zinc Sulfate 220 MG CAP PO SCH (09:58)
[2020-08-02] MEDS: Benzonatate 100 MG CAP PO SCH ×3 (09:59→21:39)
[2020-08-02] MEDS: Apixaban 5 MG TAB PO SCH ×2 (09:59→21:39)
[2020-08-02] MEDS: Aspirin 81 mg Enteric Coated Tablet PO SCH (09:59)
[2020-08-02] MEDS: Metoclopramide HCl 10 MG TAB PO SCH (09:59)
[2020-08-02] MEDS: Loratadine 10 MG TAB PO SCH (09:59)
[2020-08-02] MEDS: metFORMIN 500 MG TAB PO SCH ×2 (09:59→17:17)
[2020-08-02] MEDS: Amlodipine 5 MG TAB PO SCH (10:00)
[2020-08-02] MEDS: Sodium Chloride 1 GM TAB PO SCH ×2 (10:00→21:39)
[2020-08-02] MEDS: Insulin Regular 300 UNITS/3 ML VIAL SC PRN ×2 (11:42→21:42)
[2020-08-02] MEDS: traZODone HCl 50 MG TAB PO SCH (21:39)
[2020-08-02] MEDS: Atorvastatin Calcium 20 MG TAB PO SCH (21:39)
[2020-08-03] MEDS: Albuterol 200 PUFF (6.7GM INHALER) INH SCH ×6 (00:36→22:15)
[2020-08-03 05:28] LABS: #Basophils 0.2 thou/uL (0.0-0.2); #Eosinphils 0.1 thou/uL (0.0-0.7); #Lymphocytes 1.7 thou/uL (1.20-3.40); #Neutrophils 13.1 thou/uL (1.40-6.50); %Basophils 1.1 % (0.0-1.0); %Eosinophils 0.6 % (0.0-10.0); %Lymphocytes 10.4 % (21.0-51.0); %Monocytes 6.4 % (0.0-10.0); %Neutrophils 81.4 % (42.0-75.0); Hemoglobin 11.2 g/dL (14.0-18.0); Mean Corpuscular Hemoglobin 27.8 pg (27.0-31.0); Mean Corpuscular Volume 89.8 fL (78.0-98.0); Mean Platelet Volume 8.7 fL (7.4-10.4); Platelet Count 140 thou/uL (130-400); RBC Distribution Width 18.4 % (11.5-14.5); Red Blood Cell (RBC) Count 4.03 mill/uL (4.70-6.10)
[2020-08-03 05:40] LABS: Anion Gap 11 mmol/L (10-20); BUN (Urea Nitrogen) 18 mg/dL (8.4-25.7); Calc. Creatinine Clearance 86 mL/min (70-130); Calcium 8.4 mg/dL (7.8-10.44); Carbon Dioxide 22 mmol/L (23-31); Chloride 102 mmol/L (98-107); Glucose 111 mg/dL (83-110); Potassium 4.2 mmol/L (3.5-5.1); Sodium 131 mmol/L (136-145)
[2020-08-03] MEDS: Mometasone/Formoterol 60 PUFF AER INH SCH ×2 (09:20→22:13)
[2020-08-03] MEDS: Zinc Sulfate 220 MG CAP PO SCH (09:21)
[2020-08-03] MEDS: Loratadine 10 MG TAB PO SCH (09:21)
[2020-08-03] MEDS: Benzonatate 100 MG CAP PO SCH ×3 (09:21→22:14)
[2020-08-03] MEDS: Aspirin 81 mg Enteric Coated Tablet PO SCH (09:21)
[2020-08-03] MEDS: Metoclopramide HCl 10 MG TAB PO SCH (09:21)
[2020-08-03] MEDS: Apixaban 5 MG TAB PO SCH ×2 (09:21→22:14)
[2020-08-03] MEDS: Sodium Chloride 1 GM TAB PO SCH ×2 (09:21→22:14)
[2020-08-03] MEDS: metFORMIN 500 MG TAB PO SCH ×2 (09:21→17:00)
[2020-08-03] MEDS: Spironolactone 25 MG TAB PO SCH (09:22)
[2020-08-03] MEDS: Amlodipine 5 MG TAB PO SCH (09:22)
[2020-08-03] MEDS: Lantus 1000 UNITS/10 ML VIAL SC SCH (09:23)
[2020-08-03] MEDS: Atorvastatin Calcium 20 MG TAB PO SCH (22:14)
[2020-08-03] MEDS: traZODone HCl 50 MG TAB PO SCH (22:14)
[2020-08-04] MEDS: Albuterol 200 PUFF (6.7GM INHALER) INH SCH ×6 (00:52→20:42)
[2020-08-04 05:52] LABS: Anion Gap 12 mmol/L (10-20); BUN (Urea Nitrogen) 15 mg/dL (8.4-25.7); Calc. Creatinine Clearance 86 mL/min (70-130); Calcium 8.3 mg/dL (7.8-10.44); Carbon Dioxide 19 mmol/L (23-31); Chloride 101 mmol/L (98-107); Glucose 116 mg/dL (83-110); Potassium 4.2 mmol/L (3.5-5.1); Sodium 128 mmol/L (136-145)
[2020-08-04 05:53] LABS: #Basophils 0.1 thou/uL (0.0-0.2); #Eosinphils 0.1 thou/uL (0.0-0.7); #Lymphocytes 1.6 thou/uL (1.20-3.40); #Monocytes 0.9 thou/uL (0.11-0.59); #Neutrophils 11.4 thou/uL (1.40-6.50); %Basophils 0.9 % (0.0-1.0); %Eosinophils 0.7 % (0.0-10.0); %Lymphocytes 11.4 % (21.0-51.0); %Monocytes 6.3 % (0.0-10.0); %Neutrophils 80.7 % (42.0-75.0); Anisocytosis SLIGHT = 6-15 cells (100X) (0-5/hpf); Hypochromia SLIGHT = 6-15 cells (100X) (0-5/hpf); MDiff Complete? YES; Mean Corpuscular HGB CONC 31.1 g/dL (32.0-36.0); Mean Corpuscular Hemoglobin 28.2 pg (27.0-31.0); Mean Corpuscular Volume 90.5 fL (78.0-98.0); Platelet Count 130 thou/uL (130-400); Platelet Morphology Comment Appears Adequate; RBC Distribution Width 19.2 % (11.5-14.5); Red Blood Cell (RBC) Count 3.91 mill/uL (4.70-6.10); White Blood Cell (WBC) Count 14.2 thou/uL (4.8-10.8)
[2020-08-04] MEDS: metFORMIN 500 MG TAB PO SCH ×2 (09:16→17:22)
[2020-08-04] MEDS: Spironolactone 25 MG TAB PO SCH (09:16)
[2020-08-04] MEDS: Amlodipine 5 MG TAB PO SCH (10:07)
[2020-08-04] MEDS: Mometasone/Formoterol 60 PUFF AER INH SCH ×2 (10:09→20:43)
[2020-08-04] MEDS: Aspirin 81 mg Enteric Coated Tablet PO SCH (10:09)
[2020-08-04] MEDS: Zinc Sulfate 220 MG CAP PO SCH (10:09)
[2020-08-04] MEDS: Sodium Chloride 1 GM TAB PO SCH ×2 (10:09→20:44)
[2020-08-04] MEDS: Apixaban 5 MG TAB PO SCH ×2 (10:10→20:44)
[2020-08-04] MEDS: Metoclopramide HCl 10 MG TAB PO SCH (10:10)
[2020-08-04] MEDS: Lantus 1000 UNITS/10 ML VIAL SC SCH (10:10)
[2020-08-04] MEDS: Benzonatate 100 MG CAP PO SCH ×3 (10:10→20:44)
[2020-08-04] MEDS: Loratadine 10 MG TAB PO SCH (10:10)
[2020-08-04] MEDS: Atorvastatin Calcium 20 MG TAB PO SCH (20:44)
[2020-08-04] MEDS: traZODone HCl 50 MG TAB PO SCH (20:44)
[2020-08-05] MEDS: Albuterol 200 PUFF (6.7GM INHALER) INH SCH ×5 (01:09→17:34)
[2020-08-05] MEDS: Loratadine 10 MG TAB PO SCH (08:21)
[2020-08-05] MEDS: Sodium Chloride 1 GM TAB PO SCH (08:21)
[2020-08-05] MEDS: Benzonatate 100 MG CAP PO SCH ×2 (08:21→14:48)
[2020-08-05] MEDS: Metoclopramide HCl 10 MG TAB PO SCH (08:21)
[2020-08-05] MEDS: Zinc Sulfate 220 MG CAP PO SCH (08:21)
[2020-08-05] MEDS: Aspirin 81 mg Enteric Coated Tablet PO SCH (08:21)
[2020-08-05] MEDS: metFORMIN 500 MG TAB PO SCH ×2 (08:21→17:34)
[2020-08-05] MEDS: Mometasone/Formoterol 60 PUFF AER INH SCH (08:22)
[2020-08-05] MEDS: Apixaban 5 MG TAB PO SCH (08:22)
[2020-08-05] MEDS: Spironolactone 25 MG TAB PO SCH (08:22)
[2020-08-05] MEDS: Amlodipine 5 MG TAB PO SCH (08:25)
[2020-08-05] MEDS: Lantus 1000 UNITS/10 ML VIAL SC SCH (08:26)
[2020-08-05] MEDS: Insulin Regular 300 UNITS/3 ML VIAL SC PRN (12:58)
[2020-08-05 18:09] VITALS: BP 115/58; TEMP 97.8
== END 2020-08-05 17:45 | DRG 177 ==
LOC: NAV ACUTE 18:12
PROVIDERS: ADMIT Family Medicine; ATTEND Family Medicine
PROC: 8E0ZXY6 Isolation (ICD-10-PCS; principal; 2020-07-15)
DX: U07.1 COVID-19 (principal); J12.82 Pneumonia due to coronavirus disease 2019; I50.33 Acute on chronic diastolic (congestive) heart failure; J44.1 Chronic obstructive pulmonary disease with (acute) exacerbation; E87.1 Hypo-osmolality and hyponatremia; J44.0 Chronic obstructive pulmonary disease with (acute) lower respiratory infection; Z99.81 Dependence on supplemental oxygen; I11.0 Hypertensive heart disease with heart failure; E11.9 Type 2 diabetes mellitus without complications; Z66 Do not resuscitate; Z79.84 Long term (current) use of oral hypoglycemic drugs; E78.5 Hyperlipidemia, unspecified; Z95.0 Presence of cardiac pacemaker; Z95.5 Presence of coronary angioplasty implant and graft; Z82.49 Family history of ischemic heart disease and other diseases of the circulatory system; Z87.891 Personal history of nicotine dependence; F41.9 Anxiety disorder, unspecified; I48.0 Paroxysmal atrial fibrillation; D72.829 Elevated white blood cell count, unspecified; T38.0X5A Adverse effect of glucocorticoids and synthetic analogues, initial encounter; I25.10 Atherosclerotic heart disease of native coronary artery without angina pectoris; T50.1X5A Adverse effect of loop [high-ceiling] diuretics, initial encounter; Z79.01 Long term (current) use of anticoagulants; Z79.899 Other long term (current) drug therapy
CPT/HCPCS: 36415; 36416; 71045; 80048; 80053; 81003; 81015; 83605; 83880; 83935; 84300; 85025; 85048; 87040; 87086; 94664; J1815; J7611; J8540